=== PATIENT | female | born 1970 | race Caucasian/White ===

== ENCOUNTER 2018-02-07 07:11 | Emergency (ER) | payer MEDICAID ==
[2018-02-07 07:21] VITALS: BP 138/78
--- NOTE | 2018-02-07 07:29 | EDPHY ---
H & P Stated Complaint: pain,"redness and swelling " in l leg Time Seen by Provider: 02/07/18 07:15 HPI/ROS: CHIEF COMPLAINT: Left leg pain HISTORY OF PRESENT ILLNESS: The patient presents to the ED with complaints of atraumatic left calf pain. The patient is concerned that she may have a DVT. She has a history of treated thyroid cancer. She denies any chest pain or shortness of breath. She denies any fever, cough or congestion. She denies any acute numbness or weakness. The patient is currently not anticoagulated. The [facility] for medical clearance [facility]. REVIEW OF SYSTEMS: A comprehensive 10 point review of systems is otherwise negative aside from elements mentioned in the history of present illness. Source: Patient Exam Limitations: No limitations - Personal History LMP (Females 10-55): Hysterectomy Current Tetanus/Diphtheria Vaccine: Yes Current Tetanus Diphtheria and Acellular Pertussis (TDAP): Yes Tetanus Vaccine Date: 2005 - Medical/Surgical History Hx Asthma: No Hx Chronic Respiratory Disease: No Hx Diabetes: No Hx Cardiac Disease: No Hx Renal Disease: No Hx Cirrhosis: No Hx Alcoholism: No Hx HIV/AIDS: No Hx Splenectomy or Spleen Trauma: No Other PMH: Full HYSTERECTOMY, LEFT ANKLE SURGERY w/hardware, esophageal CA, cervical cancer, thyroidacncer with radiation, astma - Social History Smoking Status: Current every day smoker - Physical Exam Exam: General Appearance: Obese female, no acute distress Eyes: Pupils equal and round no pallor or injection ENT, Mouth: Mucous membranes moist Respiratory: There are no retractions, lungs are clear to auscultation Cardiovascular: Regular rate and rhythm Gastrointestinal: Abdomen is soft and nontender, no masses, bowel sounds normal Neurological: 5/5 strength all 4 extremities Skin: Warm and dry, no rashes Musculoskeletal: Neck is supple nontender Extremities: No appreciable asymmetric calf swelling, tenderness to palpation in the left posterior calf, 2+ dorsalis pedis and posterior tibial pulses noted bilaterally Psychiatric: Patient is oriented X 3, there is no agitation Constitutional: Initial Vital Signs Temperature (C) 36.6 C 02/07/18 07:11 Heart Rate 81 02/07/18 07:11 Respiratory Rate 16 02/07/18 07:11 Blood Pressure 138/78 H 02/07/18 07:11 O2 Sat (%) 96 02/07/18 07:11 O2 Delivery Mode Room Air Allergies/Adverse Reactions: morphine Allergy (Verified 09/08/15 21:11) Home Medications: Medication Instructions Recorded NK [No Known Home Meds] 02/07/18 Medical Decision Making - Diagnostics Imaging Results: Left lower extremity ultrasound: Images reviewed by myself and discussed with radiologist Dr. Warner. No evidence of DVT noted. ED Course/Re-evaluation: The patient presents the ED for evaluation of left leg pain. She has no clinical evidence of a cellulitis or abscess. The patient is noted to be vascularly intact with brisk arterial pulses. While she did have mild calf tenderness she had no appreciable asymmetry. She was taken for a lower extremity ultrasound which demonstrates no evidence of a DVT or other acute abnormality. The patient has been medically cleared for [facility]. She is advised to have a repeat ultrasound in 2 weeks for any ongoing symptoms. Differential Diagnosis: Differential diagnosis considered includes myofascial strain, DVT, Beckford cyst, superficial thrombophlebitis. Departure - Departure Disposition: Home, Routine, Self-Care Clinical Impression: Pain of left calf Condition: Good Instructions: Musculoskeletal Pain (ED) Additional Instructions: 1. I see no evidence of an obvious blood clot on ultrasound today. We do recommend repeating the ultrasound in 2 weeks for any ongoing symptoms. 2. Please follow up with your regular Oncology physician regarding your cancer follow-up.
== END 2018-02-07 08:10 | disposition home or self-care (01) ==
DX: M79.662 Pain in left lower leg (principal); Z85.850 Personal history of malignant neoplasm of thyroid; Z85.01 Personal history of malignant neoplasm of esophagus; Z85.41 Personal history of malignant neoplasm of cervix uteri; Z92.3 Personal history of irradiation